=== PATIENT | male | born 1990 ===

== ENCOUNTER 2021-04-02 20:42 | Emergency (ER) | payer SELFPAY ==
--- NOTE | 2021-04-02 22:03 | RAD REPORT ---
EXAM DESCRIPTION: RAD - Tib Fib Right - 04/02/2021 9:45 pm CLINICAL HISTORY: PAIN COMPARISON: No comparisons FINDINGS: No acute fracture. No malalignment. No significant focal degenerative changes. IMPRESSION: No acute osseous abnormality involving the tibia or fibula.
--- NOTE | 2021-04-02 22:11 | EDPHYS ---
Physician Documentation [facility] Name: Floyd Garcia Age: 30 yrs Sex: Male : 1990 Arrival Date: 04/02/2021 Time: 20:47 Bed 8 Private MD: ED Physician Demario Fong HPI: 04/02 21:20 This 30 yrs old Unknown Male presents to ER via Wheelchair with complaints of Knee pm1 Pain, Knee Injury, KNEE SWELLING. 21:20 The patient presents with pain, that is acute. The complaints affect the right knee. pm1 Context: The problem was sustained outdoors, resulted from Planting foot incorrectly, the patient can partially bear weight, the patient is able to ambulate, with moderate difficulty, Problem is a result from a previous injury: No. Onset: The symptoms/episode began/occurred 3 hour(s) ago. Modifying factors: The symptoms are alleviated by elevating leg, the symptoms are aggravated by weight bearing, Extension of leg. Associated signs and symptoms: Pertinent positives: swelling, Pertinent negatives numbness, tingling. Treatment prior to arrival includes: no previous treatment. Severity of symptoms: in the emergency department the symptoms a " 4" out of "10". The patient has not experienced similar symptoms in the past. The patient has not recently seen a physician. Historical: - Allergies: 21:05 Bactrim; wg 21:05 Ceclor; wg - Home Meds: 21:05 None [Active]; wg - PMHx: 21:05 None; wg - Immunization history:: Adult Immunizations up to date. - Social history:: Smoking status: Patient denies any tobacco usage or history of. Patient uses alcohol, only on a social basis. Patient/guardian denies using street drugs, IV drugs. ROS: 21:20 Constitutional: Negative for fever, chills, and weight loss, Cardiovascular: Negative pm1 for chest pain, palpitations, and edema, Respiratory: Negative for shortness of breath, cough, wheezing, and pleuritic chest pain. 21:20 Skin: Negative for injury, rash, and discoloration, Neuro: Negative for headache, weakness, numbness, tingling, and seizure. 21:20 MS/extremity: Positive for pain, swelling, tenderness, of the right knee. 21:20 All other systems are negative. Exam: 21:20 Constitutional: This is a well developed, well nourished patient who is awake, alert, pm1 and in no acute distress. Head/Face: Normocephalic, atraumatic. 21:20 Skin: Warm, dry with normal turgor. Normal color with no rashes, no lesions, and no evidence of cellulitis. 21:20 Cardiovascular: Exam negative for acute changes, Rate: normal, Rhythm: regular, Pulses: no pulse deficits are appreciated. 21:20 Respiratory: Exam negative for acute changes, respiratory distress, shortness of breath. 21:20 Musculoskeletal/extremity: Exam is negative for acute changes, Extremities: grossly normal except: noted in the right knee: There is no evidence of decreased ROM, deformity, Negative anterior and posterior drawer test, negative valgus and varus stress test, positive Apley compression test to medial aspect of right knee, ROM: full active range of motion, in the right knee, full passive range of motion, in the right knee, Circulation is intact in all extremities. the right leg Sensation intact. 21:20 Neuro: Exam negative for acute changes, Orientation: is normal, Mentation: is normal, Motor: is normal, moves all fours. Vital Signs: 21:00 BP 117 / 91; Pulse 86; Resp 18; Temp 98.4; Pulse Ox 100% on R/A; Weight 77.11 kg; wg Height 6 ft. 0 in. (182.88 cm); Pain 4/10; 22:15 BP 106 / 72; Pulse 70; Resp 16; Pulse Ox 99% on R/A; ea 21:00 Body Mass Index 23.06 (77.11 kg, 182.88 cm) wg MDM: 21:12 Patient medically screened. pm1 21:20 ED course: Patient reports 4 out of 10 pain to right knee. Patient offered pain pm1 medications to the ER, patient refused. 22:09 Data reviewed: vital signs. Data interpreted: Pulse oximetry: on room air is 100 %. pm1 Interpretation: normal. Counseling: I had a detailed discussion with the patient and/or guardian regarding: the historical points, exam findings, and any diagnostic results supporting the discharge/admit diagnosis, radiology results, the need for outpatient follow up, a orthopedic surgeon, MRI as deemed necessary at follow-up appointment with orthopedics, to return to the emergency department if symptoms worsen or persist or if there are any questions or concerns that arise at home. 04/02 21:10 Order name: XRAY Tib Fib RIGHT; Complete Time: 22:09 04/02 21:21 Order name: Knee Immobilizer; Complete Time: 22:32 pm1 04/02 21:21 Order name: Crutches; Complete Time: 22:32 pm1 Administered Medications: No medications were administered Disposition: 04/03 02:53 Co-signature as Attending Physician, Demario Fong MD. [facility] Disposition Summary: 04/02/21 22:11 Discharge Ordered Location: Home pm1 Problem: new pm1 Symptoms: have improved pm1 Condition: Stable pm1 Diagnosis - Sprain of unspecified site of right knee pm1 Followup: pm1 - With: Emergency Department - When: As needed - Reason: Worsening of condition Followup: pm1 - With: Chip Oviedo MD - When: 2 - 3 days - Reason: Recheck today's complaints, Continuance of care, Re-evaluation by your physician Discharge Instructions: - Discharge Summary Sheet pm1 - Crutch Use, Adult pm1 - How to Use a Knee Immobilizer pm1 - Knee Sprain, Adult pm1 Forms: - Medication Reconciliation Form pm1 - Thank You Letter pm1 - Antibiotic Education pm1 - Prescription Opioid Use pm1 - Work release form ea Prescriptions: - Diclofenac Sodium 75 mg Oral tablet,delayed release (DR/EC) - take 1 tablet by ORAL route every 12 hours As needed; 30 tablet; Refills: 0, pm1 Product Selection Permitted Signatures: Dispatcher [employer] EDMS Prince Chua, MUD MIXER HELPER MUD MIXER HELPER pm1 Demario Fong MD MD 7 Jason Peck RN Corrections: (The following items were deleted from the chart) 04/02 21:06 21:05 Allergies: No Known Allergies; [facility] 21:45 21:10 Knee Right 2 View+RAD.RAD.BRZ ordered. EDNE EDMS
--- NOTE | 2021-04-02 22:11 | ER ---
Nurse's Notes [facility] Name: Floyd Garcia Age: 30 yrs Sex: Male : 1990 Arrival Date: 04/02/2021 Time: 20:47 Bed 8 Private MD: Diagnosis: Sprain of unspecified site of right knee Presentation: 04/02 21:00 Chief complaint: Patient states: Pt states he was doing stunts around 6PM and landed wg awkwardly on his right knee. Pt is complaining of right knee and right siddiqui pain. Pt is unable to bare weight. Pt has no obvious deformity. +CMSx4 with slight decrease in ROM. Pt denies any other complaints or injury. Coronavirus screen: Vaccine status: Patient reports receiving the 1st dose of the Covid vaccine. Date March 12, 2021 At this time, the client does not indicate any symptoms associated with coronavirus-19. Ebola Screen: Patient negative for fever greater than or equal to 101.5 degrees Fahrenheit, and additional compatible Ebola Virus Disease symptoms Patient denies exposure to infectious person. Patient denies travel to an Ebola-affected area in the 21 days before illness onset. Initial Sepsis Screen: Does the patient meet any 2 criteria? No. Patient's initial sepsis screen is negative. Does the patient have a suspected source of infection? No. Patient's initial sepsis screen is negative. Risk Assessment: Do you want to hurt yourself or someone else? Patient reports no desire to harm self or others. Onset of symptoms was April 02, 2021 at 18:00. Care prior to arrival: None. 21:00 Method Of Arrival: Wheelchair wg 21:00 Acuity: CORINNE 3 wg Triage Assessment: 21:05 General: Appears uncomfortable, well groomed, Behavior is calm, cooperative, wg appropriate for age. Pain: Complains of pain in right knee and right siddiqui Pain currently is 4 out of 10 on a pain scale. Quality of pain is described as aching. EENT: No deficits noted. Neuro: No deficits noted. Cardiovascular: No deficits noted. Respiratory: No deficits noted. GI: No deficits noted. : No deficits noted. Derm: No deficits noted. Musculoskeletal: Circulation, motion, and sensation intact. Capillary refill Range of motion: limited in right knee Swelling absent. Injury Description: fall. Historical: - Allergies: 21:05 Bactrim; wg 21:05 Ceclor; wg - Home Meds: 21:05 None [Active]; wg - PMHx: 21:05 None; wg - Immunization history:: Adult Immunizations up to date. - Social history:: Smoking status: Patient denies any tobacco usage or history of. Patient uses alcohol, only on a social basis. Patient/guardian denies using street drugs, IV drugs. Screenin:17 Abuse screen: Denies threats or abuse. Nutritional screening: No deficits noted. ea Tuberculosis screening: No symptoms or risk factors identified. Fall Risk None identified. Assessment: 21:18 General: Appears uncomfortable, Behavior is appropriate for age. Pain: Complains of ea pain in right knee. Neuro: Level of Consciousness is awake, alert, obeys commands, Oriented to person, place, time. Respiratory: Airway is patent Respiratory effort is even, unlabored, Respiratory pattern is regular, symmetrical. Derm: Skin is pink, warm \T\ dry. 22:30 Reassessment: Patient and/or family updated on plan of care and expected duration. Pain ea level reassessed. Patient is alert, oriented x 3, equal unlabored respirations, skin warm/dry/pink. Discharge instruction given to patient verbalized the understanding of instruction. Pt left ED ambulatory tolerating well. Vital Signs: 21:00 BP 117 / 91; Pulse 86; Resp 18; Temp 98.4; Pulse Ox 100% on R/A; Weight 77.11 kg; wg Height 6 ft. 0 in. (182.88 cm); Pain 4/10; 22:15 BP 106 / 72; Pulse 70; Resp 16; Pulse Ox 99% on R/A; ea 21:00 Body Mass Index 23.06 (77.11 kg, 182.88 cm) wg ED Course: 20:47 Patient arrived in ED. cf2 21:05 Triage completed. wg 21:05 Arm band placed on right wrist. wg 21:12 Prince Chua NP is PHCP. pm1 21:12 Demario Fong MD is Attending Physician. pm1 21:17 Lorena Reyes, JONATHON is Primary Nurse. ea 21:18 Patient has correct armband on for positive identification. Bed in low position. Call ea light in reach. Side rails up X2. 21:46 XRAY Tib Fib RIGHT In Process Unspecified. EDMS 22:10 Chip Oviedo MD is Referral Physician. pm1 22:31 No provider procedures requiring assistance completed. Patient did not have IV access ea during this emergency room visit. Administered Medications: No medications were administered Outcome: 22:11 Discharge ordered by . pm1 22:31 Discharged to home ambulatory, with crutches, with family. ea 22:31 Condition: stable 22:31 Discharge instructions given to patient, Instructed on discharge instructions, follow up and referral plans. medication usage, Demonstrated understanding of instructions, follow-up care, medications. 22:31 Patient left the ED. ea Signatures: Dispatcher [employer] EDMS Prince Chua NP COMMUNITY SPORTS COORDINATOR pm1 Lorena Reyes RN RN Génesis Puente cf2 Jason Peck, JONATHON strickland Corrections: (The following items were deleted from the chart) 21:06 21:05 Allergies: No Known Allergies; em strickland
[2021-04-02 22:38] VITALS: BP 117/91; TEMP 98.4; O2SAT 100
== END 2021-04-02 22:31 | disposition home or self-care (01) ==
LOC: ER 20:42
DX: S83.91XA Sprain of unspecified site of right knee, initial encounter (principal); Z88.1 Allergy status to other antibiotic agents
CPT/HCPCS: 99283